=== PATIENT | male | born 1960 | race Caucasian/White ===

== ENCOUNTER 2016-10-25 12:37 | Emergency (ER) | payer OTHER ==
[~2016-10-25] VITALS: Ht 177.8 cm; Wt 86.2 kg
[2016-10-25 14:16] VITALS: BP 180/90
[2016-10-25] MEDS ORDERED: KEFLEX500 M1 PO (14:20)
--- NOTE | 2016-10-25 14:20 | ED HAND/WRIST INJURY COMPLAINT ---
History of Present Illness General Chief Complaint: General Adult Stated Complaint: FISH HOOK REMOVAL Source: patient Exam Limitations: no limitations Vital Signs & Intake/Output Vital Signs & Intake/Output Vital Signs Date Time Temp Pulse Resp B/P B/P Pulse O2 O2 Flow FiO2 Mean Ox Delivery Rate 10/25 1416 97.1 60 20 180/90 96 Room Air 10/25 1246 97.8 75 16 187/91 97 Room Air Allergies Coded Allergies: No Known Allergies (10/25/16) Reconcile Medications Cephalexin (Keflex) 500 MG CAPSULE 1 CAP PO TID cellulitis Triage Note: 55 Y/O MALE PRESENTS WITH FISH HOOK STUCK IN L 3RD FINGER. THINKS TETANUS WAS LESS THAN 5 YEARS AGO. SMALL METAL HOOK NOTED Triage Nurses Notes Reviewed? yes Occurred: just prior to arrival Duration: hour(s): (2), constant, continues in ED Timing: single episode today Injury Environment: home Severity: mild, moderate Severity Numbers: 6 Pain/Injury Location: Left: 3rd finger. Context: incision Method of Injury: FISH HOOK No Modifying Factors: none HPI: 55-year-old male with no significant past medical history presents for evaluation of a fishhook stuck in his left third digit. Patient states that earlier today he was reaching into a toolbox and accidentally got a treble hook stuck in the third digit. Patient states he tried removed with pliers was unsuccessful. He reports pain in the distal aspect of the third digit where the hook is. He denies any other injuries. Pain is worse with moving the area or touching the area. He rates the pain as a 6 out of 10. Does not take any medicine for the pain. He is not up-to-date on tetanus. No other injuries or associated symptoms. (LIZABETH NOE PA-C) Past History Travel History Traveled to [place] past 21 day No Medical History Any Pertinent Medical History? 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 No (LIZABETH NOE PA-C) Review of Systems Review of Systems Constitutional: Reports: no symptoms. EENTM: Reports: no symptoms. Respiratory: Reports: no symptoms. Cardiovascular: Reports: no symptoms. GI: Reports: no symptoms. Genitourinary: Reports: no symptoms. Musculoskeletal: Reports: see HPI (fish hook in left 3rd digit ). Skin: Reports: no symptoms. Neurological/Psychological: Reports: no symptoms. Hematologic/Endocrine: Reports: no symptoms. Immunologic/Allergic: Reports: no symptoms. All Other Systems: Reviewed and Negative (HASMUKH LEW,LIZABETH) Physical Exam Physical Exam Hand Left: normal range of motion, 3rd finger (fish hook in distal volar seg) Hand Right: normal inspection, normal range of motion Comments: General: Hemodynamically stable. Afebrile. Well-developed well-nourished person in no acute distress. Head: Atraumatic, normocephalic Eyes: EOMI bilaterally, PERRLA, conjunctiva are not injected, no discharge, no nystagmus, fundus grossly normal bilaterally Nose: Atraumatic, no rhinorrhea, mucosa is not erythematous, no epistaxis. Sinuses are non-tender Ears: TM pearly lucio color bilaterally, external canal is clear, no discharge, hearing is normal Mouth: Appropriate dentition, no gingival bleeding, moist mucus membranes, no oral lesions, tonsils not erythematous or enlarged and free of exudate. Uvula rises midline. Neck: Supple, full active ROM, no lymphadenopathy, no midline tenderness to palpation, no thyromegaly, no tracheal deviation. Back: Non-tender, full active ROM, no scoliosis, no CVA tenderness Cardiovascular: regular rate and rhythm, no murmurs, rubs, or gallops. No JVD Respiratory: Chest is nontender. Regular respiratory rate and effort. No accessory muscle use. Lungs clear to auscultation bilaterally. Abdomen: Soft, non-tender, non-distended, no organomegaly. No rebound tenderness or guarding. Normoactive bowel sounds. Extremities: No edema. No gross deformities. No joint swelling. No calf swelling or tenderness. Full active and passive ROM. Strength 5/5 in upper and lower extremities. Peripheral pulses 2+ bilaterally, Patellar DTR 2+ Neuro: No confusion. Motor and sensory function is intact. Appropriate gait. Cerebellar function intact. Skin: Warm and dry. Appropriate turgor. No lesions or bruising. No appreciable rash on exposed skin. Left hand third digit: There is a treble look located in the distal segment of the left third digit. Full range of motion of the digits are intact. Neurovascular supply to the left third digit is intact. Cap refill less than 2 seconds. No surrounding erythema or discharge. (LIZABETH NOE PA-C) Progress Differential Diagnosis: abscess, cellulitis, contusion, fracture, sprain, tenosynovitis, fb Plan of Care: Patient has a small treble hook stuck in the distal segment of the left third digit on the palmar side. The area was cleaned with Betadine. 1% lidocaine without epi was applied for local pain control. The barbed end of the hook was inserted out the other side of the skin and then the remainder the hook was pulled through. The area was cleaned again sterile dressing applied. Patient tolerated well without consultation. Patient will be given a prescription for cephalexin to use 3 times a day for one week. Tylenol or Profen for pain. Discussed wound care procedures. Patient is nontoxic-appearing and agrees with the plan. (LIZABETH NOE PA-C) Departure Departure Disposition: HOME OR SELF CARE Condition: Stable Clinical Impression Primary Impression: Fish hook injury of finger of left hand Qualifiers: Encounter type: initial encounter Qualified Code: S69.92XA - Unspecified injury of left wrist, hand and finger(s), initial encounter Referrals: PATIENT HAS NO PRIMARY CARE DR (PCP/Family) Additional Instructions: Keep the area clean and dry. Change dressing daily. Take antibiotics as directed for the full course. Use Tylenol or ibuprofen as needed for pain. Make a follow-up appointment with your primary care doctor for a recheck in the next few days. Look out for signs of infection such as redness swelling discharge or pain. Return to the emergency department any concerns. Departure Forms: Customer Survey General Discharge Information Prescriptions: Current Visit Scripts Cephalexin (Keflex) 1 CAP PO TID #21 CAP (LIZABETH NOE PA-C) PA/DENTAL AIDE Co-Sign Statement Statement: ED Attending supervision documentation- I saw and evaluated the patient. I have also reviewed all the pertinent lab results and diagnostic results. I agree with the findings and the plan of care as documented in the PA's/DENTAL AIDE's documentation. x I have reviewed the ED Record and agree with the PA's/DENTAL AIDE's documentation. [] Additions or exceptions (if any) to the PAs/DENTAL AIDE's note and plan are summarized below: [] (RENEA MORAES,TEN)
== END 2016-10-25 14:25 ==
LOC: ERH 12:37
DX: S61.233A Puncture wound without foreign body of left middle finger without damage to nail, initial encounter (principal); W45.8XXA Other foreign body or object entering through skin, initial encounter; Y93.89 Activity, other specified; Y92.9 Unspecified place or not applicable
CPT/HCPCS: 90471; 90714